=== PATIENT | female | born 1990 | race Caucasian/White ===

== ENCOUNTER → 2017-01-27 | Outpatient (CLI) | payer BC, OTHER ==
[2017-01-27 17:57] LABS: URINE APPEARANCE CLEAR (CLEAR); URINE BILIRUBIN NEG (NEG); URINE COLOR YELLOW; URINE NITRITE NEG (NEG); UROBILINOGEN NEG (NEG)
[2017-01-27 18:09] LABS: MANUAL MICROSCOPIC REQUIRED? NO; REVIEW REQ? NO
== END | disposition home or self-care (01) ==
LOC: C.LABSPEC 17:31
PROVIDERS: ATTEND Obstetrics & Gynecology
DX: Z34.01 Encounter for supervision of normal first pregnancy, first trimester (principal)

== ENCOUNTER → 2017-02-02 | Outpatient (CLI) | payer BC ==
[2017-02-02 16:37] LABS: BASO % 0.1 %; BASO ABS # 0.01 K/uL (0-0.2); COMPLETE YES; HEMATOCRIT 38.5 % (37-47); IG% 0.3 %; LYMPH % 24.5 %; LYMPH ABS # 1.91 K/uL (1.2-3.4); MEAN CELL VOLUME 95.1 fL (80-100); MEAN CORPUSCULAR HEMOGLOBIN 33.3 pg (25-34); MEAN CORPUSCULAR HGB CONC 35.1 g/dl (32-36); MONO % 7.3 %; NEUT % 66.8 %; PLATELET COUNT 173 K/uL (130-400); RED BLOOD COUNT 4.05 M/uL (4.2-5.4); WHITE BLOOD COUNT 7.79 K/uL (4.8-10.8)
== END | disposition home or self-care (01) ==
LOC: C.LAB1850 15:54
PROVIDERS: ATTEND Obstetrics & Gynecology
DX: Z34.01 Encounter for supervision of normal first pregnancy, first trimester (principal)

== ENCOUNTER → 2017-02-02 | Outpatient (CLI) | payer BC ==
[2017-02-05 02:58] LABS: CHLAMYDIA TRACH RNA*** NOT DETECTED (NOT DETECTED); GC (NEIS GONORRHOEAE)RNA** NOT DETECTED (NOT DETECTED)
== END | disposition home or self-care (01) ==
LOC: C.LABSPEC 18:00
PROVIDERS: ATTEND Obstetrics & Gynecology
DX: Z34.01 Encounter for supervision of normal first pregnancy, first trimester (principal)

== ENCOUNTER → 2017-04-12 | Outpatient (CLI) | payer BC ==
[2017-04-12 21:45] LABS: GTGD 50 Grams
== END | disposition home or self-care (01) ==
LOC: C.LAB1850 14:41
PROVIDERS: ATTEND Obstetrics & Gynecology
DX: Z34.01 Encounter for supervision of normal first pregnancy, first trimester (principal)

== ENCOUNTER → 2017-06-30 | Outpatient (CLI) | payer OTHER ==
[~2017-06-30] MED LIST: PRENTAB26 PO
[2017-06-30 17:39] LABS: HEMATOCRIT 34.5 % (37-47); HEMOGLOBIN 11.7 g/dL (12.0-16.0)
== END | disposition home or self-care (01) ==
LOC: C.LAB1850 15:45
PROVIDERS: ATTEND Obstetrics & Gynecology
DX: Z34.02 Encounter for supervision of normal first pregnancy, second trimester (principal)

== ENCOUNTER → 2017-06-30 | Outpatient (CLI) | payer OTHER | END | disposition home or self-care (01) | LOC: C.LABSPEC 17:39 | PROVIDERS: ATTEND Obstetrics & Gynecology | DX: Z34.02 Encounter for supervision of normal first pregnancy, second trimester (principal) ==

== ENCOUNTER → 2017-07-08 | Outpatient (CLI) | payer OTHER | END | disposition home or self-care (01) | LOC: C.LAB1850 09:01 | PROVIDERS: ATTEND Obstetrics & Gynecology | DX: O28.1 Abnormal biochemical finding on antenatal screening of mother (principal); Z3A.00 Weeks of gestation of pregnancy not specified ==

== ENCOUNTER → 2017-08-27 | Outpatient (CLI) | payer OTHER | END | disposition home or self-care (01) | LOC: C.LABSPEC 17:35 | PROVIDERS: ATTEND Obstetrics & Gynecology | DX: Z34.03 Encounter for supervision of normal first pregnancy, third trimester (principal) ==

== ENCOUNTER 2017-09-22 15:30 | Outpatient (CLI) | payer OTHER ==
[~2017-09-22] VITALS: Ht 162.6 cm; Wt 68.6 kg
[2017-09-22] MEDS ORDERED: PRENTAB26 PO (16:11)
[2017-09-22 16:17] VITALS: Ht 162.6 cm; Wt 68.6 kg
--- NOTE | 2017-09-22 18:39 | DIAGNOSTIC IMAGING REPORT ---
Study: biophysical profile HISTORY: Nonreactive stress test FINDINGS: biophysical profile is 6 out of a possible 8. breathing was not identified. Amniotic fluid index 9 cm. Cephalic presentation. Anterior placenta. Estimation Of gestational age 40 weeks. IMPRESSION: biophysical profile 6 out of a possible 8. breathing was not observed.. Electronically signed by: Rodolfo Manzo M.D. 09/22/2017 6:38 PM Dictated Date/Time: 09/22/2017 6:36 PM
== END 2017-09-22 19:00 | disposition home or self-care (01) ==
LOC: C.OPB 15:30 → C.LD 15:30 → C.OPB 19:00
PROVIDERS: ATTEND Obstetrics & Gynecology
DX: O48.0 Post-term pregnancy (principal); Z3A.40 40 weeks gestation of pregnancy

== ENCOUNTER 2017-09-23 10:35 | Inpatient (IN) | payer OTHER ==
[~2017-09-23] VITALS: Ht 162.6 cm; Wt 68.6 kg
[2017-09-23] MEDS ORDERED: LACTATED RINGER'S 1000ML 1,000 ML IV PRN (10:39)
[2017-09-23 11:10] LABS: HEMATOCRIT 37.1 % (37-47); MEAN CELL VOLUME 97.1 fL (80-100); MEAN PLATELET VOLUME 12.1 fL (7.4-10.4); PLATELET COUNT 167 K/uL (130-400); RED CELL DISTRIBUTION WIDTH CV 13.6 % (11.5-14.5); RED CELL DISTRIBUTION WIDTH SD 48.3 fL (36.4-46.3)
[2017-09-23 11:23] VITALS: Ht 162.6 cm; Wt 68.6 kg
[2017-09-23] MEDS: LACTATED RINGER'S 1000ML 1,000 ML IV SCH ×2 (13:46→14:47)
[2017-09-23] MEDS ORDERED: EpHEDrine SULFATE INJ 50 MG/ML AMP ONE (13:48)
[2017-09-23] MEDS ORDERED: BUPIVACAINE 0.25% 30 ML VIAL ONE (13:48)
[2017-09-23] MEDS ORDERED: FENTANYL 2MCG/ML ROPIV 1.25MG/ML 100ML BAG EPI ONE (13:49)
[2017-09-23] MEDS ORDERED: FENTANYL CITRATE INJ 50 MCG/1 ML 2 ML VIAL ONE (13:49)
[2017-09-23] MEDS ORDERED: OXYTOCIN 30 UNITS/500ML NSS IV ONE (14:49)
[2017-09-23] MEDS ORDERED: LACTATED RINGER'S 1000ML 500 ML IV PRN (15:03)
[2017-09-23] MEDS ORDERED: NALOXONE HCL INJ 1 MG in SODIUM CHLORIDE 0.9% 1000ML 1,000 ML IV PRN (15:03)
[2017-09-23] MEDS ORDERED: FENTANYL 2MCG/ML ROPIV 1.25MG/ML 100ML BAG EPI PRN (15:15)
[2017-09-23] MEDS ORDERED: ONDANSETRON INJ 2 MG/ML 2 ML VIAL IV PRN (15:15)
[2017-09-23] MEDS ORDERED: EpHEDrine SULFATE INJ 50 MG/ML AMP IV PRN (15:15)
[2017-09-23] MEDS ORDERED: DiphenhydrAMINE HCL 50 MG/ML VIAL IV PRN (15:15)
[2017-09-23] MEDS ORDERED: NALOXONE HCL INJ 0.4 MG/1 ML VIAL/CARP IV PRN (15:15)
[2017-09-23] MEDS ORDERED: NALBUPHINE HCL INJ 10 MG/ML AMP IV PRN (15:15)
[2017-09-23] MEDS ORDERED: LACTATED RINGER'S 1000ML 1,000 ML IV SCH (16:13)
[2017-09-23] MEDS ORDERED: SUPERCREAM 0.870 % 15GM JAR EXT PRN (16:15)
[2017-09-23] MEDS ORDERED: LANOLIN OINT EXT PRN (16:15)
[2017-09-23] MEDS ORDERED: HYDROCORTISONE ACETATE 25 MG SUPP PR PRN (16:15)
[2017-09-23] MEDS ORDERED: OXYTOCIN 30 UNITS/500ML NSS IV PRN (16:15)
[2017-09-23] MEDS ORDERED: ACETAMINOPHEN 325 MG TAB PO PRN (16:15)
[2017-09-23] MEDS ORDERED: OXYCODONE/ACETAMINOPHEN 5-325 TAB PO PRN (16:15)
--- NOTE | 2017-09-23 16:16 | Vaginal Delivery Summary ---
Vaginal Delivery Summary Toshia pushed to deliver the head of her in occiput anterior position. The shoulders and remainder of the baby were born without any difficulty. THe placenta delivered spontaneously and was intact with a 3VC. Second degree perineal laceration was repaired in the usual manner with vicryl suture and a crown stitch to rebuild the perineal body. Fundus is firm and lochia is minimal at this time.
--- NOTE | 2017-09-23 17:50 | Anesthesia Procedure Note ---
Anesthesia Epidural Removal Nt Date & Time Sep 23, 2017 at 17:49 Vital Signs Pain Intensity: 0.0 Notes Mental Status: alert / awake / arousable, participated in evaluation Nausea / Vomiting: adequately controlled Pain: adequately controlled Airway Patency, RR, SpO2: stable & adequate BP & HR: stable & adequate Hydration State: stable & adequate Neuraxial Anesthesia: was administered, sensory block is resolved Anesthetic Complications: no major complications apparent, pt satisfied with anesthetic care Epidural: removed without complications, with tip intact
[2017-09-23 19:35] VITALS: BP 123/79; PULSE 89; TEMP 37.5; O2SAT 99
[2017-09-23] MEDS: BENZOCAINE 20% AER SPR 82.5 GM CAN EXT PRN (20:21)
[2017-09-23 23:20] VITALS: BP 116/73; PULSE 98; TEMP 36.9
[2017-09-23] MEDS: IBUPROFEN 600 MG TAB PO PRN (23:24)
[2017-09-24 03:35] VITALS: BP 102/67; PULSE 83; TEMP 36.9
[2017-09-24] MEDS: IBUPROFEN 600 MG TAB PO PRN ×3 (03:37→16:25)
--- NOTE | 2017-09-24 06:40 | Progress Note ---
Subjective Sep 24, 2017. Subjective conversation w/ patient, physical exam Ambulation: ambulating normally Voiding: no voiding problems Passing Gas: Yes Diet Tolerance: Regular Diet Lochia: Moderate Feeding Type: Breast Feeding Pain: Reports general soreness Comment: seen and assessed at bedside; no acute events overnight Review of Systems Constitutional: No fever, No chills Respiratory: No cough, No shortness of breath Cardiac: No chest pain, No edema Abdomen: No nausea, No vomiting no headaches or calf pain Objective Vital Signs Date Time Temp Pulse Resp B/P (MAP) Pulse Ox O2 Delivery O2 Flow Rate FiO2 09/24/17 03:35 36.9 83 16 102/67 (79) Room Air 09/23/17 23:20 Room Air 09/23/17 23:20 36.9 98 16 116/73 (87) Room Air 09/23/17 19:35 37.5 89 18 123/79 (94) 99 Room Air 09/23/17 19:35 99 Room Air Physical Exam General Appearance: WELL-APPEARING, NO APPARENT DISTRESS Respiratory/Chest: lungs clear, normal breath sounds Cardiovascular: regular rate, rhythm, no edema, no murmur Abdomen: non tender, soft Fundus: Firm, Non-Tender, Relation to Umbilicus (2 below) Extremities: normal range of motion, non-tender, normal inspection, no pedal edema, no calf tenderness Laboratory Results Last 24 Hours Test 09/23/17 10:53 09/24/17 04:44 White Blood Count 12.70 K/uL Red Blood Count 3.82 M/uL Hemoglobin 13.0 g/dL Hematocrit 37.1 % Mean Corpuscular Volume 97.1 fL Mean Corpuscular Hemoglobin 34.0 pg Mean Corpuscular Hemoglobin Concent 35.0 g/dl RDW Standard Deviation 48.3 fL RDW Coefficient of Variation 13.6 % Platelet Count 167 K/uL Mean Platelet Volume 12.1 fL Medications Current Inpatient Medications Medications (Trade) Dose Ordered Sig/Lindy Route Start Time Stop Time Status Last Admin Dose Admin Lactated Ringer's 1,000 ml @ 125 mls/hr Q8H IV 09/23/17 10:39 09/25/17 10:38 09/23/17 14:47 125 MLS/HR Lactated Ringer's 1,000 ml @ 999 mls/hr Q1H1M PRN IV 09/23/17 10:39 10/23/17 10:38 Fentanyl/ Ropivacaine (Fentanyl 2MCG/ Ml/Ropivacaine 1.25MG/ML) 100 ml PRN PRN EPI 09/23/17 15:15 09/24/17 15:14 Naloxone HCl (Narcan Inj) 0.1 mg UD PRN IV 09/23/17 15:15 09/24/17 15:14 Lactated Ringer's 500 ml @ 999 mls/hr Q31M PRN IV 09/23/17 15:03 09/24/17 15:02 Ephedrine Sulfate (EpHEDrine SULFATE INJ) 10 mg Q5M PRN IV 09/23/17 15:15 09/24/17 15:14 Diphenhydramine HCl (Benadryl Inj) 25 mg Q6H PRN IV 09/23/17 15:15 09/24/17 15:14 Nalbuphine HCl (Nubain Inj) 5 mg Q10M PRN IV 09/23/17 15:15 09/24/17 15:14 Naloxone HCl 1 mg/ Sodium Chloride 1,002.5 ml @ 50 mls/hr Q20H3M PRN IV 09/23/17 15:03 09/24/17 15:02 Ondansetron HCl (Zofran Inj) 4 mg Q6H PRN IV 09/23/17 15:15 09/24/17 15:14 Lactated Ringer's 1,000 ml @ 125 mls/hr Q8H IV 09/23/17 16:13 10/23/17 16:12 Oxytocin (Pitocin IV) 30 units UD PRN IV 09/23/17 16:15 10/23/17 16:14 Benzocaine (Dermoplast Aero Spr) 1 appln PRN PRN EXT 09/23/17 16:15 10/23/17 16:14 09/23/17 20:21 165 APPLN Cocaine HCl (Supercream 0.870% Cr) BID PRN EXT 09/23/17 16:15 10/07/17 16:14 Hydrocortisone Acetate (Anusol Hc Supp) 25 mg BID PRN [place] 09/23/17 16:15 10/23/17 16:14 Lanolin (Lanolin Oint) PRN PRN EXT 09/23/17 16:15 10/23/17 16:14 Prenat Multivit/ [place]/Iron/Folic Ac ( Vitamin Tab) 1 tab DAILY PO 09/24/17 08:00 10/24/17 07:59 Ibuprofen (Motrin Tab) 600 mg Q4H PRN PO 09/23/17 16:15 10/23/17 16:14 09/24/17 03:37 600 MG Acetaminophen (Tylenol Tab) 650 mg Q6H PRN PO 09/23/17 16:15 10/23/17 16:14 Oxycodone/ Acetaminophen (Percocet 5-325mg Tab) 1 tab Q4H PRN PO 09/23/17 16:15 10/07/17 16:14 Docusate Sodium (coLACE CAP) 100 mg BID PO 09/23/17 20:00 10/23/17 19:59 Diphtheria/ Pertussis/Tetanus Vacc (Adacel Inj) 0.5 ml ONCE ONCE IM. 09/24/17 09:00 09/24/17 09:01 Assessment and Plan Post- Day#: 1 Continue Routine Care: 26 yo PPD 1 s/p Doing well clinically Continue routine care Encourage ambulation, breast feeding/first time mom education on breast feeding Pain control with rx prn Resident Tracking Resident Involvement: Resident Care Provided Care Provided: OB Delivery
[2017-09-24 08:00] VITALS: BP_SYST 105; BP_SYST 116; BP_DIAS 67; BP_DIAS 74; PULSE 85; TEMP 37; O2SAT 98
[2017-09-24 08:06] LABS: HEMATOCRIT 31.3 % (37-47); HEMOGLOBIN 11.1 g/dL (12.0-16.0)
[2017-09-24] MEDS: PRENATAL VITAMIN TAB PO SCH (08:45)
[2017-09-24] MEDS: DOCUSATE SODIUM 100 MG CAP PO SCH ×2 (08:46→19:44)
[2017-09-24] MEDS ORDERED: DIPHTHERIA/TETANUS/PERTUSSIS 0.5 ML SYR/VIAL IM. ONE (09:00)
[2017-09-24 11:45] VITALS: BP 102/65; PULSE 68; TEMP 36.8
[2017-09-24 16:25] VITALS: BP 108/63; PULSE 80; TEMP 37; O2SAT 97
[2017-09-25 00:05] VITALS: BP 101/62; PULSE 67; TEMP 36.9; O2SAT 100
[2017-09-25] MEDS: IBUPROFEN 600 MG TAB PO PRN ×2 (04:36→08:47)
--- NOTE | 2017-09-25 07:24 | Progress Note ---
Subjective Sep 25, 2017. Subjective conversation w/ patient, physical exam Ambulation: ambulating normally Voiding: no voiding problems Passing Gas: Yes Diet Tolerance: Regular Diet Lochia: Small Feeding Type: Breast Feeding Pain: Generalized soreness, no severe pain Comment: Seen and assessed at bedside; no acute events overnight Review of Systems Constitutional: No fever, No chills Respiratory: No cough, No shortness of breath Cardiac: No chest pain, No edema Abdomen: No nausea, No vomiting no headaches or calf pain Objective Vital Signs Date Time Temp Pulse Resp B/P (MAP) Pulse Ox O2 Delivery O2 Flow Rate FiO2 09/25/17 00:05 100 Room Air 09/25/17 00:05 36.9 67 18 101/62 (75) 100 Room Air 09/24/17 16:25 97 Room Air 09/24/17 16:25 37.0 80 18 108/63 (78) 97 Room Air 09/24/17 11:45 36.8 68 18 102/65 (77) Room Air 09/24/17 08:45 Room Air 09/24/17 08:00 37.0 85 18 105/67 (80) 98 Room Air Physical Exam General Appearance: WELL-APPEARING, NO APPARENT DISTRESS Respiratory/Chest: lungs clear, normal breath sounds Cardiovascular: regular rate, rhythm, no edema, no murmur Abdomen: normal bowel sounds, non tender, soft Fundus: Firm, Non-Tender, Relation to Umbilicus (3 below) Extremities: normal range of motion, non-tender, normal inspection, no pedal edema, no calf tenderness Laboratory Results Last 24 Hours Test 09/24/17 07:45 Hemoglobin 11.1 g/dL Hematocrit 31.3 % Medications Current Inpatient Medications Medications (Trade) Dose Ordered Sig/Lindy Route Start Time Stop Time Status Last Admin Dose Admin Lactated Ringer's 1,000 ml @ 125 mls/hr Q8H IV 09/23/17 10:39 09/25/17 10:38 09/23/17 14:47 125 MLS/HR Lactated Ringer's 1,000 ml @ 999 mls/hr Q1H1M PRN IV 09/23/17 10:39 10/23/17 10:38 Lactated Ringer's 1,000 ml @ 125 mls/hr Q8H IV 09/23/17 16:13 10/23/17 16:12 Oxytocin (Pitocin IV) 30 units UD PRN IV 09/23/17 16:15 10/23/17 16:14 Benzocaine (Dermoplast Aero Spr) 1 appln PRN PRN EXT 09/23/17 16:15 10/23/17 16:14 09/23/17 20:21 165 APPLN Cocaine HCl (Supercream 0.870% Cr) BID PRN EXT 09/23/17 16:15 10/07/17 16:14 Hydrocortisone Acetate (Anusol Hc Supp) 25 mg BID PRN [place] 09/23/17 16:15 10/23/17 16:14 Lanolin (Lanolin Oint) PRN PRN EXT 09/23/17 16:15 10/23/17 16:14 Prenat Multivit/ [place]/Iron/Folic Ac ( Vitamin Tab) 1 tab DAILY PO 09/24/17 08:00 10/24/17 07:59 09/24/17 08:45 1 TAB Ibuprofen (Motrin Tab) 600 mg Q4H PRN PO 09/23/17 16:15 10/23/17 16:14 09/25/17 04:36 600 MG Acetaminophen (Tylenol Tab) 650 mg Q6H PRN PO 09/23/17 16:15 10/23/17 16:14 Oxycodone/ Acetaminophen (Percocet 5-325mg Tab) 1 tab Q4H PRN PO 09/23/17 16:15 10/07/17 16:14 Docusate Sodium (coLACE CAP) 100 mg BID PO 09/23/17 20:00 10/23/17 19:59 09/24/17 19:44 100 MG Assessment and Plan Post- Day#: 2 Continue Routine Care: 26 yo PPD 2 s/p Pt doing well Continue routine care: pain control prn, breast feeding, ambulation Home today; discharge instructions reviewed 6 wk follow up with Dr. Maria Resident Physician Supervision Note: I interviewed and examined the patient. Discussed with Dr. Sims and agree with findings and plan as documented in the note. Any exceptions or clarifications are listed here: D/C instructions reviewed Documented By: Ricky Alberto Resident Tracking Resident Involvement: Resident Care Provided Care Provided: OB Delivery
--- NOTE | 2017-09-25 07:46 | Discharge Instructions ---
Discharge Instructions Date of Service Sep 25, 2017. Admission Reason for Admission: Check Labor Discharge Discharge Diagnosis / Problem: s/p Discharge Goals Goal(s): Routine recovery after delivery Medications Continue Dispensed Medications: supercream, dermaplast, tucks, lansinoh Activity Recommendations Activity Limitations: per Instructions/Follow-up section . Instructions / Follow-Up Instructions / Follow-Up ACTIVITY RECOMMENDATIONS: * Gradual return to full activity over the next 2-3 weeks. * No lifting - nothing heavier than baby over the next 2-3 weeks. * Do not engage in vigorous exercise, sexual activity or sports until cleared by your physician. * Do not drive or operate any motorized equipment until cleared by your physician. * You may shower/bathe daily. MEDICATIONS: For discomfort or pain, you may use Acetaminophen (Tylenol), Ibuprofen (Advil), or Naproxen (Aleve) following the package directions. For constipation you may use Colace following the package directions. BREAST CARE: If you are not breast feeding: * Wear a supportive bra 24 hours a day for one to two weeks. * Avoid stimulating your breasts and nipples as much as possible during the first few weeks after delivery. * When taking a shower, have the warm water hit your back, not breasts. * When your breasts feel full, apply ice packs. Usually three to four times a day helps ease the discomfort. * Take a mild pain medication (Tylenol / Motrin) when you are uncomfortable. If breast feeding: * Use breast milk to lubricate nipples. Lansinoh cream may be used for sore nipples. You do not need to remove cream prior to breast feeding. If using a different brand of cream, check the label for directions regarding removal of cream prior to nursing. * Wear a supportive bra. * If having problems with breasts or breast feeding, call a networks software consultant or your health care provider. EPISIOTOMY CARE: After delivery, if you have an episiotomy (stitches), the following steps will ease discomfort and aid healing. * For the first 24 hours after delivery, place ice packs next to your episiotomy to help reduce swelling. * After the first 24 hour-period, sitz baths, either portable or in the tub, are suggested. A shower with a shower arm sprayed over the episiotomy may be comforting. * Tyra care should be done after each voiding and bowel movement. Squirt warm water from a plastic bottle over the perineum (region of the body between the anus and urinary opening) and pat dry. * Use Dermoplast to ease discomfort. Shake container. [place] directly over the episiotomy. Place a Tucks on a clean sanitary pad next to your episiotomy. SPECIAL CARE INSTRUCTIONS: When you are discharged from the hospital, it is important for you to follow the instructions listed below: * During the first week at home, you should be able to care for yourself and your baby. In addition, the usual light household activities are encouraged. * Limit your activities to the way you feel. Do not try to clean the house or move furniture. Be sensible. * If you actively engage in sports and have done so up until the time of your delivery, you may resume these activities as soon as you feel able. This may take up to one month or even longer. Use good judgment. * Continue to take your vitamins for at least six weeks after the of your baby. * Your diet need not be limited unless you were on a special diet before your delivery. Breast-feeding mothers need around 2500 calories per day and at least 64-80 ounces of fluid per day (8 to 10 glasses). * You should eat foods from the four major food groups. Crash diets or fad diets are to be avoided. Eating lean meats, fresh fruits and vegetables, low-fat dairy products, high fiber foods and a regular exercise program, will help you get back to your pre- weight without putting your health at risk. * Constipation is sometimes a problem after delivery. Take a mild laxative as needed. If breast feeding, Milk of Magnesia is acceptable to use. You may use a suppository or Fleets enema if no episiotomy. * A daily shower or tub bath is suggested. Be sure to thoroughly and gently dry the perineum. * A bloody vaginal discharge will usually continue until around four weeks post . A small amount of bleeding may continue for as long as six weeks. Vaginal discharge changes from the bright red bleeding after delivery to pink then brownish and finally yellowish-pink before becoming white and disappearing. * Bleeding may increase with activity. Your first period may come in 4-8 weeks. If you are breast feeding, your period may be delayed even longer. * [place] (sex) can begin whenever both you and your partner feel comfortable and do not have any form of genital infection. It is recommended that you wait at least six weeks for internal and external healing to occur. If you have questions, please talk to your health care practitioner. A condom should be used to prevent infection and . * Foreplay, gentle intercourse and lubrication is very important the first several times to prevent pain. A water-based lubricant such as K-Y jelly or Astroglide may be used. * If you have RH negative blood and your baby is RH positive, you will receive RHOGAM by injection prior to discharge. The nurse will give you a card to keep with you that has the date and place that you received RHOGAM after delivery. * During your care, you had a Rubella screen done to check for the presence of rubella antibodies in your blood. If your test was negative, you will receive a Rubella vaccine prior to discharge. This vaccine may cause a fever, soreness at the injection site and flu-like symptoms. If these symptoms persist, notify your health care practitioner. is not advised for one month after a Rubella vaccine. * Verbalizes understanding of car seat law as reviewed with patient nursing. * Car Seat hand-out given and reviewed with patient by nursing. * Shaken baby information reviewed with patient by nursing. Call you doctor if: * Heavy bleeding (saturating several pads an hour) or passing clots the size of your fist. * A fever >101 degrees F (38.3 degrees C) on two occasions four hours apart and /or chills. * Unusual pain in the pelvic or vaginal areas. * "Baby Blues" lasting longer than two weeks. If you have any questions or concerns, call your health care practitioner at . FOLLOW UP VISIT: * Please call the office at to schedule a [address] Maria. It is important you keep this appointment. It is important for you to make arrangements for either yearly or twice yearly check-ups thereafter. Current Hospital Diet Patient's current hospital diet: Regular OB Diet Discharge Diet Recommended Diet: Regular Diet Pending Studies Studies pending at discharge: no Medical Emergencies . Who to Call and When: Medical Emergencies: If at any time you feel your situation is an emergency, please call 911 immediately. . Non-Emergent Contact Non-Emergency issues call your: Manager Editorial . . "Provider Documentation" section prepared by Tatiana Sims. .
[2017-09-25 08:00] VITALS: BP 94/59; PULSE 74; TEMP 36.7; O2SAT 98
[2017-09-25] MEDS: PRENATAL VITAMIN TAB PO SCH (08:47)
[2017-09-25] MEDS: DOCUSATE SODIUM 100 MG CAP PO SCH (08:47)
[2017-09-25] MEDS: BENZOCAINE 20% AER SPR 82.5 GM CAN EXT PRN (08:47)
[2017-09-25 11:41] VITALS: BP_DIAS 59; PULSE 74; TEMP 36.7
== END 2017-09-25 13:14 | disposition home or self-care (01) | DRG 775 ==
LOC: C.LD 10:35 → C.OPB 10:35 → C.LD 10:40 → C.OBG 19:38
PROVIDERS: ADMIT Obstetrics & Gynecology; ATTEND Obstetrics & Gynecology
PROC: 10E0XZZ Delivery of Products of Conception, External Approach (ICD-10-PCS; principal; 2017-09-23)
PROC: 0KQM0ZZ Repair Perineum Muscle, Open Approach (ICD-10-PCS; principal; 2017-09-23)
DX: O70.1 Second degree perineal laceration during delivery (principal); Z3A.40 40 weeks gestation of pregnancy; Z37.0 Single live birth

== ENCOUNTER 2022-04-11 10:21 | Inpatient (IN) ==
--- NOTE | 2022-04-11 11:38 | History & Physical Report ---
Date of Service April 11, 2022 Assessment & Plan (1) Encounter for supervision of normal in multigravida: Plan: Will ambulate in halls - not quite in labor ctx pattern, however suspect early labor. Offered to patient that she can either ambulate and be rechecked in a few hours. She is agreeable to this - will let us know if ctx order picker in the meantime. History of Present Illness Chief Complaint: contractions Primary Care Provider: RAUL Robertson 31yo @ 40 07/04, presents to L&D with ctx. Yesterday's exam in office tight 2cm. Has been crampy and now contractions every few minutes. No leaking, no bleeding. + movement. uncomplicated. Allergies Allergy/AdvReac Type Severity Reaction Status Date / Time No Known Drug Allergies Allergy Verified 04/10/22 10:52 Home Medications Medication Instructions Recorded Confirmed Type acetaminophen 500 mg tablet 500 mg PO Q6 PRN Fever Or Pain 02/04/21 04/10/22 History (Tylenol Extra Strength) prenat.vits,elaine,[id number] 1 tab PO DAILY 08/27/21 04/10/22 History Patient History Medical History (Updated 09/02/21 @ 10:16 by Melissa Gongora MD, FACOG) H/O varicella Surgical History H/O wisdom tooth extraction Family History Grandmother (Paternal) Atrial fibrillation Diabetes Ovarian cancer Brother Celiac disease Family/Other Celiac disease First degree cousin Crohn's disease Uncle Colorectal cancer Maternal Grandfather (Paternal) Diabetes Lung disease Aunt FHx: Down syndrome Paternal Father Kidney disease Denies family history of Prostate cancer Myocardial infarction Breast cancer Social History (Updated 08/27/21 @ 09:04 by Ciara Mathis) Smoking Status: Never smoker Second Hand Exposure: No; Do You Dip or Chew Tobacco: No; Tobacco Cessation Education Requested by Patient: No Hx Alcohol Use: No Hx Substance Use: No Preferred Language: Tanzanian Communication Ability: Effective Dye Colorist Formulator Required: No Beliefs That Will Affect Care: None marital status: marital status details: Kamaljit Diaz ([phone] Current Living Situation: Spouse Current Living Situation Comment: - Joshua; Son- Harjit current occupational status: employed current occupation: [employer] Other Information That Helps Us Care for You: No Feels Safe at Home: Yes Safety Concerns: Feels Safe At This Time Childhood Exposure to Second-Hand Smoke: No caffeine: No Dental Care, Regularly: Yes Physical Activity Frequency: 3-4 Times per Week Seatbelt Use: always Sunscreen Use: Yes Assistive Devices: Glasses Review of Systems All systems reviewed & are unremarkable except as noted in HPI & below Physical Exam Physical Exam: FHT Cat 1 [place] Q 2-5 SVE /-1. Soft/post. EFW 7-8 Constitutional: WD/WN, vitals as above Respiratory: normal respiratory effort, lungs clear to auscultation no respiratory distress Cardiovascular: Rate/Rhythm: regular rate and regular rhythm Gastrointestinal (Abdomen): Inspection/Auscultation: abdomen normal to inspection Percussion/Palpation: abdomen soft; abdomen nontender Gravid. No s/s chorio or abruption. Skin: no rashes, warm and dry Psychiatric: A+Ox3, euthymic affect Results & Data ([facility]) Vital Signs (Past 12 Hours) Vital Signs Temp Pulse Resp BP 04/11/22 10:30 18 04/11/22 10:30 37.1 C 18 04/11/22 10:47 98 H 120/74 04/11/22 10:40 37.1 C 18 Coding Level of Care Code None Diagnoses Encounter for supervision of normal in multigravida Z34.80
[2022-04-11] MEDS ORDERED: LIDOCAINE 1% LOCAL 20 ML VIAL INFIL PRN (14:15)
[2022-04-11] MEDS ORDERED: OXYTOCIN 30 UNITS/500 ML BAG IV PRN ×3 (14:15→17:34)
--- NOTE | 2022-04-11 14:15 | Labor Progress Brief Note ---
Date of Service April 11, 2022 Subjective Uncomfortable with ctx. FHT Cat 1. [place] Q 2-4 SVE unchanged per RN Discussed augmentation with pitocin - agreeable. Will start pitocin, do admission labs. Results & Data ([facility]) Vital Signs (Past 12 Hours) Vital Signs Temp Pulse Resp BP 04/11/22 12:56 18 04/11/22 12:56 36.9 C 18 04/11/22 12:55 84 122/78 04/11/22 10:30 18 04/11/22 10:30 37.1 C 18 04/11/22 10:47 98 H 120/74 04/11/22 10:40 37.1 C 18 Coding Level of Care Code None
[2022-04-11] MEDS: LACTATED RINGER'S 1,000 ML IV PRN ×2 (14:19→15:13)
[2022-04-11 14:34] LABS: Hematocrit (blood only) 35.9 % (34.1-44.9); Hemoglobin 12.7 g/dl (12.0-16.0); Mean Corpuscular Hemoglobin 34.7 pg (25.0-34.0); Mean Corpuscular Hgb Conc 35.4 g/dL (32.0-36.0); Mean Corpuscular Volume 98.1 fL (80.0-100.0); Mean Platelet Volume 12.7 fL (9.4-12.3); Platelet Count 124 K/uL (130-400); RDW Coefficient of Variation 12.5 % (11.5-14.5); RDW Standard Deviation 44.8 fL (36.4-46.3); Red Blood Count 3.66 M/uL (3.93-5.22); White Blood Count 10.76 K/ul (4.8-10.8)
--- NOTE | 2022-04-11 16:36 | Labor Progress Brief Note ---
Date of Service April 11, 2022 Subjective Uncomfortable with ctx - does not desire epidural. FHT Cat 1 [place] Q 2 SVE 6-7/90/-1 AROM clear fluid. Continue labor. Assessment & Plan Admission and Anticipated Discharge Date Admission Date: April 11, 2022 Results & Data ([facility]) Vital Signs (Past 12 Hours) Vital Signs Temp Pulse Resp BP 04/11/22 16:30 125/74 04/11/22 16:16 85 117/66 04/11/22 16:01 89 124/69 04/11/22 15:45 78 116/70 04/11/22 15:36 89 123/77 04/11/22 15:18 93 H 115/58 L 04/11/22 15:01 82 116/60 04/11/22 14:50 18 04/11/22 14:50 36.9 C 18 04/11/22 12:56 18 04/11/22 12:56 36.9 C 18 04/11/22 12:55 84 122/78 04/11/22 10:30 18 04/11/22 10:30 37.1 C 18 04/11/22 10:47 98 H 120/74 04/11/22 10:40 37.1 C 18 Coding Level of Care Code None
[2022-04-11] MEDS ORDERED: BENZOCAINE 20% AER SPR 82.5 GM CAN EXT PRN (17:34)
[2022-04-11] MEDS ORDERED: HYDROCORTISONE ACETATE 25 MG SUPP PR PRN (17:34)
[2022-04-11] MEDS ORDERED: bisacodyL 10 MG SUPP PR PRN (17:34)
[2022-04-11] MEDS ORDERED: ACETAMINOPHEN 325 MG TAB PO PRN (17:34)
[2022-04-11] MEDS ORDERED: DIPHTHERIA/TETANUS/PERTUSSIS 0.5 ML SYR/VIAL IM ONE (17:34)
[2022-04-11] MEDS ORDERED: oxyCODONE/ACETAMINOPHEN 5mg/325mg TAB PO PRN (17:34)
--- NOTE | 2022-04-11 17:38 | Delivery Summary ---
Vaginal Delivery Summary Date of Service April 11, 2022 Vaginal Delivery Summary and 2nd Degree LAC Vaginal Delivery Summary: Pre-delivery diagnoses: 31yo @ 40 07/04, spontaneous labor Post-delivery diagnoses: same Procedure: spontaneous vaginal delivery, repair of 1st degree laceration Surgeon: Faviola Rose DO Complications: none Findings: Viable female . Apgars: 8/8. Weight pending, please see nursery records Estimated blood loss: 300ml Description of delivery: The patient progressed to complete without anesthesia. She then began to push. She spontaneously vaginally delivered a viable from the cephalic presentation. The head delivered in CECY position. No nuchal. The anterior shoulder delivered, followed by the posterior shoulder, followed by the body. The baby was placed on mother's abdomen and a spontaneous cry was heard. Delayed cord clamping was employed, and the cord was doubly clamped and cut. Cord blood was obtained. The placenta was delivered spontaneously intact with a 3-vessel cord. The uterus and vagina were swept of clots and debris. IV pitocin was given. The uterus became firm. The cervix, vagina, and perineum were inspected and a 2nd degree laceration was noted. 1% lidocaine infused for local anesthetic, and the laceration was repaired with 3-0 vicryl in standard fashion. Excellent hemostasis was observed. The mother and baby are recovering in stable and good condition in the room. Sponge, needle, and instrument counts were correct x 2. Faviola Rose DO [facility] Vaginal Delivery Charge Vaginal Delivery Codes: 49246 global code for the antepartum, delivery, and post- Delivery Type Details: and 2nd Degree LAC
[2022-04-11] MEDS: IBUPROFEN 600 MG TAB PO PRN (17:57)
[2022-04-11] MEDS: DOCUSATE SODIUM 100 MG CAP PO SCH (20:54)
[2022-04-12 07:08] LABS: Hematocrit (blood only) 34.3 % (34.1-44.9); Hemoglobin 12.2 g/dl (12.0-16.0); Mean Corpuscular Hemoglobin 34.5 pg (25.0-34.0); Mean Corpuscular Hgb Conc 35.6 g/dL (32.0-36.0); Mean Corpuscular Volume 96.9 fL (80.0-100.0); Mean Platelet Volume 12.5 fL (9.4-12.3); Platelet Count 125 K/uL (130-400); RDW Coefficient of Variation 12.3 % (11.5-14.5); RDW Standard Deviation 43.3 fL (36.4-46.3); Red Blood Count 3.54 M/uL (3.93-5.22); White Blood Count 10.29 K/ul (4.8-10.8)
[2022-04-12] MEDS ORDERED: PRENATAL VITAMIN 1 TAB PO SCH (08:00)
--- NOTE | 2022-04-12 09:11 | Obstetrical Progress Note ---
Date of Service April 12, 2022 Assessment & Plan (1) Encounter for supervision of normal in multigravida: PPD#1 doing well. Desires DC home later today. Min lochia. Pain controlled. well. Reviewed DC instructions, followup in office 6w. Subjective Ambulation: ambulating normally Voiding: no voiding problems Diet Tolerance:: regular diet Lochia:: Moderate Review of Systems All systems reviewed & are unremarkable except as noted in HPI & below Physical Exam Constitutional WD/WN, vitals as above no acute distress Respiratory normal respiratory effort Cardiovascular Rate/Rhythm: regular rate and regular rhythm Gastrointestinal (Abdomen) Inspection/Auscultation: abdomen normal to inspection; abdomen not distended Percussion/Palpation: abdomen soft Genitourinary OB Exam Abdomen: + fundal height Fundus: + firm; not tender Results & Data ([facility]) Vital Signs (Past 12 Hours) Vital Signs Temp Pulse Resp BP 04/12/22 03:01 36.9 C 68 18 115/68 04/11/22 23:14 37.2 C 77 18 110/70
[2022-04-12] MEDS: DOCUSATE SODIUM 100 MG CAP PO SCH (10:10)
[2022-04-12] MEDS: IBUPROFEN 600 MG TAB PO PRN (10:10)
[2022-04-12] MEDS ORDERED: bisacodyL 5 MG TABEC PO SCH (20:00)
== END 2022-04-12 19:30 | disposition home or self-care (01) | DRG 807 ==
LOC: OPB 10:21 → 4S1 10:23 → 4E2 21:07
DX: Z37.0 Single live birth; Z3A.40 40 weeks gestation of pregnancy; O70.1 Second degree perineal laceration during delivery